=== PATIENT | female | born 1950 | race Caucasian/White ===

== ENCOUNTER → 2018-08-23 | Outpatient (CLI) | payer BC | LOC: COL.RAD 08-22 16:24 | DX: K80.20 Calculus of gallbladder without cholecystitis without obstruction (principal); K29.70 Gastritis, unspecified, without bleeding; F32.9 Major depressive disorder, single episode, unspecified; K76.0 Fatty (change of) liver, not elsewhere classified; M54.9 Dorsalgia, unspecified; D64.9 Anemia, unspecified; R05 Cough; R13.10 Dysphagia, unspecified; R63.1 Polydipsia | CPT/HCPCS: A9541 ==

== ENCOUNTER 2018-09-17 08:30 | Outpatient (RCR) | payer BC | END 2018-11-28 | disposition home or self-care (01) | LOC: WSST | DX: R13.10 Dysphagia, unspecified (principal); R10.9 Unspecified abdominal pain; R63.1 Polydipsia ==

== ENCOUNTER → 2018-09-17 | Outpatient (CLI) | payer BC | LOC: COL.RAD 08:30 | DX: F32.9 Major depressive disorder, single episode, unspecified (principal); D64.9 Anemia, unspecified; K76.0 Fatty (change of) liver, not elsewhere classified; K29.70 Gastritis, unspecified, without bleeding; R13.10 Dysphagia, unspecified; K80.20 Calculus of gallbladder without cholecystitis without obstruction; R05 Cough; R63.1 Polydipsia ==

== ENCOUNTER → 2018-09-25 09:30 | Outpatient (RCR) | payer BC | END | disposition home or self-care (01) | LOC: WSC 08-31 12:58 | DX: M48.02 Spinal stenosis, cervical region (principal); Z98.1 Arthrodesis status ==